=== PATIENT | male | born 1995 | race Caucasian/White ===

== ENCOUNTER 2021-04-09 10:13 | Emergency (ER) | payer OTHER ==
[~2021-04-09] VITALS: Ht 177.8 cm; Wt 99.2 kg
[2021-04-09 10:15] VITALS: BP 136/71
[2021-04-09] MEDS ORDERED: FLUORESCEIN OPHTH 1 MG STRIP OS ONE (10:50)
[2021-04-09] MEDS ORDERED: PROPARACAINE 0.5% OPHTH SOL 15ML OS ONE (10:50)
[2021-04-09] MEDS ORDERED: ERYTHROMYCIN OPHTH OINT OS ONE (11:05)
[2021-04-09] MEDS ORDERED: ERYTOIN8 OS (11:13)
== END 2021-04-09 11:30 | disposition home or self-care (01) ==
LOC: M ED 10:13
DX: S05.02XA Injury of conjunctiva and corneal abrasion without foreign body, left eye, initial encounter (principal); X58.XXXA Exposure to other specified factors, initial encounter; Y92.89 Other specified places as the place of occurrence of the external cause; F17.210 Nicotine dependence, cigarettes, uncomplicated